=== PATIENT | male | born 1980 | race Caucasian/White ===

== ENCOUNTER 2018-09-29 12:05 | Emergency (ER) | payer OTHER ==
[~2018-09-29] VITALS: Ht 167.6 cm; Wt 88.9 kg
[2018-09-29 12:11] VITALS: BP 126/78; PULSE 107; RESP 20; Ht 167.6 cm; Wt 88.9 kg
[2018-09-29] MEDS ORDERED: KETOROLAC 30 MG INJ IM STA (13:25)
[2018-09-29] MEDS ORDERED: FIORICET PO (14:05)
[2018-09-29] MEDS ORDERED: IBUP-1542 PO (14:05)
--- NOTE | 2018-09-29 20:15 | ERD ---
ER Documentation Chief Complaint Chief Complaint Complains of a headache x 3 days HPI 37-year-old male presents for headache times 2 days. States that the headache is 10 out of 10, headache is noted to be diffuse. Took Tylenol without relief. Denies any cough or runny nose. Denies nausea or vomiting. Patient states that he had headaches in the past however has not been this severe. ROS All systems reviewed and are negative except as per history of present illness. Medications Home Meds Active Scripts Acetamin/Butalbital/Caffeine* (Fioricet*) [id number] Tab, 1 TAB PO Q6H PRN for PAIN, #30 TAB Prov:THELMA RAY DO 09/29/18 Ibuprofen* (Motrin*) 600 Mg Tab, 600 MG PO Q6H PRN for PAIN AND OR ELEVATED TEMP, #30 TAB Prov:THELMA RAY DO 09/29/18 PMhx/Soc Medical and Surgical Hx: pt denies Medical Hx, pt denies Surgical Hx Hx Alcohol Use: No Hx Substance Use: No Smoking Status: Never smoker Physical Exam Vitals Vital Signs Date Temp Pulse Resp B/P (MAP) Pulse Ox O2 O2 Flow FiO2 Time Delivery Rate 09/29/18 99.7 107 20 126/78 97 12:11 (94) Physical Exam Const: No acute distress Head: Atraumatic, no temporal area tenderness to palpation Eyes: Normal Conjunctiva, pupils equal, round, reactive to light bilaterally ENT: Normal External Ears, bilateral tympanic membrane intact without erythema or bulging noted, Nose and Mouth. No tonsillar swelling or exudate noted Neck: Full range of motion. No meningismus, no bruits noted Resp: Clear to auscultation bilaterally Cardio: Regular rate and rhythm, no murmurs, bilateral radial and dorsalis pedis pulses intact Skin: No petechiae or rashes Ext: No cyanosis, or edema, 5 out of 5 muscular bilateral upper and lower extremities Neur: Awake and alert, bilateral upper and lower extremity sensation intact Psych: Normal Mood and Affect Results 24 hrs Current Medications Medications Dose Sig/Carmencita Start Time Status Last (Trade) Ordered Route PRN Stop Time Admin Dose Reason Admin Ketorolac 30 mg ONCE STAT 09/29/18 DC 09/29/18 Tromethamine IM 13:25 13:35 (Toradol) 09/29/18 13:27 Procedures/MDM Medical Decision Making: Differential diagnosis includes but not limited to primary headache, subarachnoid hemorrhage, meningitis, temporal arteritis, glaucoma, hypertension, cerebral ischemia, carotid or vertebral arterial dissection, brain tumor. Patient appeared well on physical examination, nontoxic appearing. No history of fever. There is low suspicion for meningitis. Given patient's age and no temporal area tenderness to palpation, low suspicion for temporal arteritis. Patient has no vision changes and pupils are reactive bilaterally, low suspicion for glaucoma. There is also no focal neurologic deficits to suggest a brain tumor. Patient has normal sensation and muscle strength, low suspicion for cerebral ischemia. Given the patient states that the current headache is worse than ones he has had in the past, decision was made to head CT. Head CT was unremarkable. In the ER patient given Toradol Symptoms improved with treatment. Patient given prescription for Fioricet and Motrin Patient likely has progression of his primary headache. Patient advised to follow up with PCP in 1-2 days. Patient advised to return to ED for new or worsening symptoms. Patient stable on discharge from the ED. Disclaimer: Inadvertent spelling and grammatical errors are likely due to EHR/dictation software use and do not reflect on the overall quality of patient care. Also, please note that the electronic time recorded on this note does not necessarily reflect the actual time of the patient encounter. Departure Diagnosis: Primary Impression: Headache Condition: Fair Patient Instructions: Self-Care for Headaches Referrals: [facility] YOU HAVE RECEIVED A MEDICAL SCREENING EXAM AND THE RESULTS INDICATE THAT YOU DO NOT HAVE A CONDITION THAT REQUIRES URGENT TREATMENT IN THE EMERGENCY DEPARTMENT. FURTHER EVALUATION AND TREATMENT OF YOUR CONDITION CAN WAIT UNTIL YOU ARE SEEN IN YOUR DOCTORS OFFICE WITHIN THE NEXT 1-2 DAYS. IT IS YOUR RESPONSIBILITY TO MAKE AN APPOINTMENT FOR FOLOW-UP CARE. IF YOU HAVE A PRIMARY DOCTOR --you should call your primary doctor and schedule an appointment IF YOU DO NOT HAVE A PRIMARY DOCTOR YOU CAN CALL OUR PHYSICIAN REFERRAL HOTLINE AT IF YOU CAN NOT AFFORD TO SEE A PHYSICIAN YOU CAN CHOSE FROM THE FOLLOWING [facility] [address] [place]. [facility] [address] [facility]. [facility] [address] [facility] [address] [facility]. [facility] [address] [facility]. [facility] [address] Additional Instructions: Llame al doctor MAANA y simone anthony FANY PARA DENTRO DE 1-2 CARNEY.Dgale a la secretaria que nosotros le instruimos hacer esta fany.Avise o llame si zaman condicin se empeora antes de la fany. Regresa aqui si peor o no mejor. THELMA RAY DO Sep 29, 2018 20:15
== END 2018-09-29 14:23 | disposition home or self-care (01) ==
LOC: FTE 12:05
DX: R51 Headache (principal)
CPT/HCPCS: 70450; 96372; 99285; J1885

== ENCOUNTER 2019-04-21 14:47 | Emergency (ER) | payer OTHER ==
[~2019-04-21] VITALS: Ht 172.7 cm; Wt 93.3 kg
[~2019-04-21 14:47] MED LIST: DIAZ5TAB PO; FIORICET PO; IBUP-1542 PO; IBUP800T48 PO
[2019-04-21 15:15] VITALS: BP 106/70; PULSE 75; RESP 17; Ht 172.7 cm; Wt 93.3 kg
== END 2019-04-21 18:03 | disposition home or self-care (01) ==
LOC: FTE 14:47
DX: M54.5 Low back pain (principal)
CPT/HCPCS: 96372; 99284; J1885